=== PATIENT | male | born 1995 | race Two or more races ===

== ENCOUNTER 2018-02-25 15:32 | Emergency (ER) | payer SELFPAY ==
[~2018-02-25] VITALS: Ht 188 cm; Wt 104.3 kg
[2018-02-25 15:40] VITALS: Ht 188 cm; Wt 104.3 kg
[2018-02-25 18:00] VITALS: BP 133/95
== END 2018-02-25 18:00 | disposition home or self-care (01) ==
LOC: ED 15:32
DX: S76.191A Other specified injury of right quadriceps muscle, fascia and tendon, initial encounter (principal); W18.39XA Other fall on same level, initial encounter; Y93.89 Activity, other specified; Y92.89 Other specified places as the place of occurrence of the external cause; Y99.8 Other external cause status

== ENCOUNTER 2019-02-10 17:56 | Emergency (ER) | payer SELFPAY ==
[~2019-02-10] VITALS: Ht 185.4 cm; Wt 99.3 kg
[2019-02-10 18:55] VITALS: BP 171/100; Ht 185.4 cm; Wt 99.3 kg
[2019-02-12 06:10] LABS: RAPID PLASMA REAGIN Non Reactive (Non Reactive)
== END 2019-02-10 21:44 | disposition home or self-care (01) ==
LOC: ED 17:56
PROVIDERS: Emergency Medicine
DX: Z11.3 Encounter for screening for infections with a predominantly sexual mode of transmission (principal); R00.2 Palpitations; R20.0 Anesthesia of skin; F41.9 Anxiety disorder, unspecified
CPT/HCPCS: 87491; 87591

== ENCOUNTER 2020-01-15 08:15 | Emergency (ER) | payer OTHER ==
[~2020-01-15] VITALS: Ht 185.4 cm; Wt 99.8 kg
[2020-01-15 08:37] VITALS: Ht 185.4 cm; Wt 99.8 kg
[2020-01-15 09:32] VITALS: BP 136/68
== END 2020-01-15 09:32 | disposition home or self-care (01) ==
LOC: ED 08:15
DX: S83.91XA Sprain of unspecified site of right knee, initial encounter (principal); X58.XXXA Exposure to other specified factors, initial encounter; Y93.89 Activity, other specified; Y92.89 Other specified places as the place of occurrence of the external cause; Y99.8 Other external cause status

== ENCOUNTER 2020-01-30 04:05 | Emergency (ER) | payer OTHER ==
[~2020-01-30] VITALS: Ht 185.4 cm; Wt 104.3 kg
[2020-01-30 04:06] VITALS: BP 173/104; Ht 185.4 cm; Wt 104.3 kg
== END 2020-01-30 05:32 | disposition left against medical advice (07) ==
LOC: ED 04:05
DX: Z53.21 Procedure and treatment not carried out due to patient leaving prior to being seen by health care provider (principal)